=== PATIENT | female | born 1970 | race Hispanic/Latino ===

== ENCOUNTER 2017-01-28 07:29 | Emergency (ER) | payer OTHER ==
[2017-01-28 07:57] VITALS: BP 109/46; PULSE 70; RESP 19; TEMP 97; O2SAT 98
--- NOTE | 2017-01-28 10:54 | ED PDOC ---
Upper Extremity Pain/Injury Time Seen by Provider: 01/28/17 08:30 Chief Complaint (Nursing): Upper Extremity Problem/Injury Chief Complaint (Provider): Upper Extremity Problem/Injury History Per: Patient History/Exam Limitations: no limitations Onset/Duration Of Symptoms: Days (x 2) Current Symptoms Are (Timing): Still Present Additional Complaint(s): Karen is a 46 year old female who presents to the emergency department with right shoulder pain for 2 days. Patient states she has difficulty extending arm or lifting up elbow. Reports having same problem years ago. Was told she had tendonitis. Denies trauma or falls. PMD: Liset Past Medical History Reviewed: Historical Data, Nursing Documentation, Vital Signs Vital Signs: Last Vital Signs Temp 97 F L 01/28/17 07:51 Pulse 70 01/28/17 07:51 Resp 19 01/28/17 07:51 BP 109/46 L 01/28/17 07:51 Pulse Ox 98 01/28/17 07:51 - Medical History Other PMH: Bilateral shoulder Tendonitis - Surgical History Other surgeries: Breast augmentation - Family History Family History: States: Unknown Family Hx - Social History Alcohol: Social - Home Medications Home Medications: Ambulatory Orders Medication Instructions Recorded Ibuprofen [Motrin] 600 mg PO Q6H PRN #20 tab 01/28/17 - Allergies Allergies/Adverse Reactions: Allergies Allergy/AdvReac Type Severity Reaction Status Date / Time No Known Allergies Allergy Verified 01/28/17 07:51 Review of Systems ROS Statement: Except As Marked, All Systems Reviewed And Found Negative Musculoskeletal: Positive for: Shoulder Pain (Right) Physical Exam - Reviewed Nursing Documentation Reviewed: Yes Vital Signs Reviewed: Yes - Physical Exam Extremity: Positive for: Other (See comments) Comments: Right Shoulder: (+): Localized pain, Shoulder Joint Tenderness, Neuromuscular Intact, Capillary refill less than 2 seconds (-): Signs of dislocation, bony step off, crepitus, erythema, hematoma - ECG O2 Sat by Pulse Oximetry: 98 (RA) Pulse Ox Interpretation: Normal Medical Decision Making Medical Decision Making: Time: 09:52 Plan: r/o Calcific Tendinitis - Toradol 60 mg IM - Right Shoulder X-Ray Time: 11:12 Right Shoulder X-Ray FINDINGS: BONES: Normal. No fracture. JOINTS: Normal. Glenohumeral and acromioclavicular joints preserved. SOFT TISSUES: Normal. OTHER FINDINGS: Supraspinatus calcific tendonitis. IMPRESSION: No demonstrated fracture or dislocation. Calcific tendinitis of the supraspinatus tendon. Time: 11:32 X-Ray reviewed. Patient will be given a sling Upon provider evaluation patient is medically stable, and requires no further treatment in the ED at this time. Patient will be discharged with a rx of motrin. Counseling was provided and all questions were answered regarding diagnosis and need for follow up with PCP. There is agreement to discharge plan. Return if symptoms persist or worsen. Scribe Attestation: Documented by London Hager, acting as a scribe for Devika Puente MD Provider Scribe Attestation: All medical record entries made by the Scribe were at my direction and personally dictated by me. I have reviewed the chart and agree that the record accurately reflects my personal performance of the history, physical exam, medical decision making, and the department course for this patient. I have also personally directed, reviewed, and agree with the discharge instructions and disposition. Disposition - Clinical Impression Clinical Impression: Calcific tendonitis - Patient ED Disposition Is Patient to be Admitted: No Counseled Patient/Family Regarding: Studies Performed, Diagnosis, Need For Followup - Disposition Referrals: [facility] [Outside] Provider TBD, [Primary Care Provider] - Jorge Loredo III, MD [Staff Provider] - Disposition: Routine/Home Disposition Time: 11:00 Condition: STABLE Additional Instructions: follow up with orthopedics in 1-2 days return to the ED with any worsening or concerning symptoms Prescriptions: Ibuprofen [Motrin] 600 mg PO Q6H PRN #20 tab PRN Reason: Pain, Moderate (4-7) Instructions: Calcific Tendinitis (ED) Forms: [employer] (Yakut)
--- NOTE | 2017-01-28 11:13 | RAD ---
PROCEDURE: Radiographs of the Right Shoulder HISTORY: atraumatic pain rule out calcific tendonitis COMPARISON: No prior. FINDINGS: BONES: Normal. No fracture. JOINTS: Normal. Glenohumeral and acromioclavicular joints preserved. SOFT TISSUES: Normal. OTHER FINDINGS: Supraspinatus calcific tendonitis. IMPRESSION: No demonstrated fracture or dislocation. Calcific tendinitis of the supraspinatus tendon.
== END 2017-01-28 11:55 | disposition home or self-care (01) ==
LOC: SUPCPDRO 07:29 → H.ER 07:29
DX: M75.31 Calcific tendinitis of right shoulder (principal)
CPT/HCPCS: 73030; 81025; 96372; 99283; J1885